=== PATIENT | female | born 2000 | race Caucasian/White ===

== ENCOUNTER 2024-06-16 23:47 | Observation (INO) | payer OTHER ==
[2024-06-17 00:29] VITALS: BMI 27.1
[2024-06-17] MEDS: Ketorolac Tromethamine 30 MG (1 mL) VIAL IVP SCH (02:56)
[2024-06-17 06:23] LABS: #Basophils Less than 0.03 10x3/uL (0.0-0.2); #Eosinophils Less than 0.03 10x3/uL (0.0-0.7); %Basophils 0.8 % (0.0-1.0); %Eosinophils 0.8 % (0.0-10.0); %Lymphocytes 30.1 % (21.0-51.0); %Monocytes 9.8 % (0.0-10.0); %Neutrophils 58.5 % (42.0-75.0); Hematocrit 35.7 % (36.0-47.0); Hemoglobin 11.6 g/dL (12.0-16.0); Mean Corpuscular HGB CONC 32.5 g/dL (32.0-36.0); Mean Platelet Volume 9.3 fL (7.4-10.4); Platelet Count 138 10x3/uL (130-400); Red Blood Cell (RBC) Count 4.15 mill/uL (4.20-5.40)
[2024-06-17] MEDS: Morphine 4 MG/ML VIAL SLOW IVP SCH (06:27)
[2024-06-17 06:38] LABS: Anion Gap 14 mmol/L (10-20); BUN (Urea Nitrogen) 9 mg/dL (7.0-18.7); Calc. Creatinine Clearance 172 mL/min (70-130); Calcium 8.4 mg/dL (7.8-10.44); Carbon Dioxide 20 mmol/L (22-29); Chloride 105 mmol/L (98-107); Estimated GFR 126; Glucose 73 mg/dL (70-105); Potassium 3.6 mmol/L (3.5-5.1); Sodium 135 mmol/L (136-145)
[2024-06-17 06:43] LABS: Troponin I 0.065 ng/mL (< 0.028)
[2024-06-17] MEDS: Ketorolac Tromethamine 30 MG (1 mL) VIAL IVP PRN (07:37)
[2024-06-17 09:21] LABS: Troponin I 0.097 ng/mL (< 0.028)
[2024-06-17] MEDS: Enoxaparin 40 MG (0.4 mL) SYRINGE SC SCH (10:01)
[2024-06-17] MEDS: Vancomycin 1 GM in Premix 1 BAG IVPB SCH (10:01)
[2024-06-17] MEDS: Cefepime 1 GM in Sodium Chloride 0.9% 100 ML IVPB SCH (10:01)
[2024-06-17] MEDS: Acetaminophen 325 MG TAB PO PRN (10:03)
[2024-06-17] MEDS ORDERED: Ketorolac Tromethamine 30 MG (1 mL) VIAL IVP PRN (12:40)
[2024-06-17 13:59] LABS: Troponin I 0.104 ng/mL (< 0.028)
[2024-06-17 14:12] LABS: Free T4 (Free Thyroxine) 1.01 ng/dL (0.70-1.48); Thyroid Stimulating Hormone 0.5913 uIU/mL (0.35-4.94)
[2024-06-17] MEDS: Ibuprofen 600 MG TAB PO SCH (17:31)
[2024-06-17] MEDS: Vancomycin (BATCH) 1.25 GM in Premix 1 BAG IVPB SCH (17:33)
[2024-06-17] MEDS: Fioricet 325/50/40 mg Tablet PO PRN (17:33)
[2024-06-17] MEDS: Cefepime 2 GM in Sodium Chloride 0.9% 100 ML IVPB SCH (17:45)
[2024-06-17 18:37] LABS: ALT (SGPT) 14 U/L (8-55); AST (SGOT) 26 U/L (5-34); Albumin 3.1 g/dL (3.5-5.0); Alkaline Phosphatase 74 U/L (40-110); Bilirubin, Direct 0.2 mg/dL (0.1-0.3); Bilirubin, Total 0.4 mg/dL (0.2-1.2); Protein, Total 6.9 g/dL (6.0-8.3)
[2024-06-17 18:42] LABS: INR-International Normal Ratio 1.3; PTT 32.1 sec (22.9-36.1); Prothrombin Time 16.6 sec (12.0-14.7)
[2024-06-17 18:58] LABS: HIV (1/2) Antibody/Antigen NONREACTIVE (NonReactive); HIV 1/2 INDEX 0.13 S/CO (<1.00)
[2024-06-17] MEDS: Morphine 2 MG/ML VIAL SLOW IVP PRN (19:14)
[2024-06-17] MEDS: Ondansetron PF 4 MG/2 ML Vial IVP PRN (19:20)
[2024-06-17] MEDS: Colchicine 0.6 MG TAB PO SCH (20:35)
[2024-06-18] MEDS: Ibuprofen 800 MG TAB PO SCH (01:29)
[2024-06-18] MEDS: Pantoprazole DR 40 MG TAB PO SCH (01:29)
[2024-06-18 05:06] LABS: #Basophils Less than 0.03 10x3/uL (0.0-0.2); #Eosinophils Less than 0.03 10x3/uL (0.0-0.7); %Basophils 0.5 % (0.0-1.0); %Eosinophils 0.5 % (0.0-10.0); %Lymphocytes 34.2 % (21.0-51.0); %Monocytes 14.2 % (0.0-10.0); %Neutrophils 50.6 % (42.0-75.0); Hematocrit 35.9 % (36.0-47.0); Mean Corpuscular HGB CONC 33.4 g/dL (32.0-36.0); Mean Corpuscular Volume 83.7 fL (78.0-98.0); Mean Platelet Volume 9.6 fL (7.4-10.4); Platelet Count 162 10x3/uL (130-400); RBC Distribution Width 12.7 % (11.5-14.5); Red Blood Cell (RBC) Count 4.29 mill/uL (4.20-5.40)
[2024-06-18 05:25] LABS: Vancomycin, Random 16.5 ug/mL (See Comment)
[2024-06-18 05:26] LABS: ALT (SGPT) 14 U/L (8-55); AST (SGOT) 22 U/L (5-34); Alkaline Phosphatase 74 U/L (40-110); Anion Gap 12 mmol/L (10-20); BUN (Urea Nitrogen) 9 mg/dL (7.0-18.7); Bilirubin, Total 0.3 mg/dL (0.2-1.2); Calc. Creatinine Clearance 189 mL/min (70-130); Calcium 8.7 mg/dL (7.8-10.44); Carbon Dioxide 23 mmol/L (22-29); Chloride 109 mmol/L (98-107); Estimated GFR 129; Globulin 3.7 g/dL (2.4-3.5); Glucose 96 mg/dL (70-105); Potassium 3.5 mmol/L (3.5-5.1); Protein, Total 6.7 g/dL (6.0-8.3); Sodium 140 mmol/L (136-145)
[2024-06-18] MEDS: Escitalopram Oxalate 10 mg Tablet PO SCH (09:52)
[2024-06-18 12:02] VITALS: BP 113/74; TEMP 98.1
[2024-06-18] MEDS ORDERED: Vancomycin (BATCH) 1.5 GM in Premix 1 BAG IVPB SCH (16:00)
[2024-06-19 06:15] LABS: EBV VCA IgM <36.0 U/mL (0.0-35.9)
[2024-06-19 14:26] LABS: CENP IgG Antibody 0.6 EliAU/mL (<7 Negative); Jo-1 IgG Antibody 0.8 EliAU/mL (<7 Negative); RNP70 IgG Antibody 0.6 EliAU/mL (<7 Negative); SSA/Ro IgG Antibody Greater than 240.0 EliAU/mL (<7 Negative); Scleroderma-70 IgG Antibody Less than 0.6 EliAU/mL (<7 Negative); Smith D IgG Antibody 0.7 EliAU/mL (<7 Negative); dsDNA IgG Antibody 1.2 IU/mL (<10 Negative)
[2024-06-19 16:07] LABS: ANA Symphony (Qualitative) POSITIVE (Negative); ANA Symphony (Quantitative) Greater than 55.0 Ratio (< 0.7 Negative)
[2024-06-21 16:36] LABS: Hep C PCR-Quant HCV Not Detected IU/mL (.)
== END 2024-06-18 15:10 | disposition home or self-care (01) ==
LOC: OBS 23:47
PROVIDERS: ADMIT Specialist; ATTEND Specialist
PROC: B246ZZZ Ultrasonography of Right and Left Heart (ICD-10-PCS; principal; 2024-06-16)
DX: R07.81 Pleurodynia (principal); R79.89 Other specified abnormal findings of blood chemistry; I31.39 Other pericardial effusion (noninflammatory); F41.9 Anxiety disorder, unspecified; M35.00 Sjogren syndrome, unspecified; R79.1 Abnormal coagulation profile; R50.9 Fever, unspecified; D64.9 Anemia, unspecified; D72.819 Decreased white blood cell count, unspecified; Z79.899 Other long term (current) drug therapy; Z88.8 Allergy status to other drugs, medicaments and biological substances
CPT/HCPCS: 36415; 80048; 80076; 80202; 83520; 84439; 84443; 84484; 85025; 85379; 85384; 85610; 85730; 86038; 86141; 86225; 86235; 86664; 86665; 87040; 87389; 87522; 93306; 93970; 96372; 96374; 96375; 96376; G0378; J0692; J1650; J1885; J2272; J2405; J3370; J3370-JW